=== PATIENT | female | born 1955 | race Caucasian/White ===

== ENCOUNTER 2021-07-12 11:40 | Emergency (ER) | payer MEDICAID ==
[~2021-07-12] VITALS: Ht 167.6 cm; Wt 86.2 kg
[2021-07-12 11:45] VITALS: BP 117/90
--- NOTE | 2021-07-12 11:51 | NUR ---
PT SENT TO LOBBY
[2021-07-12 13:20] LABS: BASOPHILS % (AUTO) 0.4 % (0.0-2.0); EOSINOPHILS # (AUTO) 0.2 K/uL (0-0.4); EOSINOPHILS % (AUTO) 2.6 % (0.0-4.0); HEMATOCRIT 46.4 % (36-48); HEMOGLOBIN 15.5 g/dL (12.0-16.0); LYMPHOCYTES # (AUTO) 1.6 K/uL (2.5-16.5); LYMPHOCYTES % (AUTO) 20.7 % (20.5-51.1); MEAN CORPUSCULAR HEMOGLOBIN 31 pg (27-31); MEAN CORPUSCULAR HGB CONC 34 g/dL (33-37); MEAN CORPUSCULAR VOLUME 91.6 fL (80-94); MONOCYTES # (AUTO) 0.3 K/uL (0.8-1.0); MONOCYTES % (AUTO) 4.6 % (1.7-9.3); NEUTROPHILS # (AUTO) 5.4 K/uL (1.8-7.7); NEUTROPHILS % (AUTO) 71.7 % (42.2-75.2); PLATELET COUNT (AUTO) 213 K/uL (140-450); RED BLOOD CELL COUNT(AUTO) 5.06 MIL/uL (4.20-5.40); RED CELL DISTRIBUTION WIDTH 13.5 % (11.6-13.7); WHITE BLOOD COUNT (AUTO) 7.6 K/uL (4.8-10.8)
[2021-07-12 13:30] LABS: ALBUMIN 3.8 g/dL (3.4-5.0); ANION GAP 10.7 (8-16); CARBON DIOXIDE 28.6 mmol/L (21-32); CREATININE 1.1 mg/dL (0.6-1.3); POTASSIUM 4.3 mmol/L (3.5-5.1); TOTAL BILIRUBIN 0.4 mg/dL (0.0-1.0)
--- NOTE | 2021-07-12 14:02 | NUR ---
UA sample collected, handed to CPT. Sumaya
[2021-07-12 14:06] LABS: APPEARANCE,URINE CLEAR (CLEAR); BILIRUBIN,URINE NEGATIVE (NEGATIVE); BLOOD, URINE TRACE-I (NEGATIVE); COLOR,URINE YELLOW (YELLOW); LEUKOCYTE ESTERASE ,URINE 2+ (NEGATIVE); NITRITE, URINE NEGATIVE (NEGATIVE); UGLUCOSE NEGATIVE (NEGATIVE)
[2021-07-12] MEDS ORDERED: LOPERAMIDE 2 MG CAP PO ONE (14:15)
--- NOTE | 2021-07-12 14:26 | NUR ---
66/F PRESENTS TO ED WITH C/O ABDOMINAL PAIN AND DIARRHEA SINCE THURSDAY. PATIENT STATES PAIN HAS PERSISTED AND UNABLE TO FIND RELIEF, DENIES TAKING ANYTHING AT HOME FOR PAIN OR DIARRHEA. PATIENT ALSO C/O INTERMITTENT EPISODES OF NAUSEA, DENIES VOMITING, CHEST PAIN, SOB OR URINARY SYMPTOMS.
[2021-07-12] MEDS ORDERED: NACL 0.9% 1,000 ML IV ONE (14:35)
[2021-07-12 14:57] LABS: WBC,URINE 20-60 /HPF (0-5)
[2021-07-12] MEDS ORDERED: MORPHINE SULFATE 4 MG/ML SYR IVP ONE (15:50)
[2021-07-12] MEDS ORDERED: KETOROLAC 30 MG/ML VIAL IVP ONE (15:50)
--- NOTE | 2021-07-12 15:50 | NUR ---
IV ESTABLISHED TO LEFT AC, FLUID BOLUS STARTED.
[2021-07-12] MEDS ORDERED: cefTRIAXone 1,000 MG VIAL ONE (16:25)
--- NOTE | 2021-07-12 16:45 | NUR ---
PATIENT AMBULATED TO BATHROOM, STEADY GAIT.
--- NOTE | 2021-07-12 17:59 | NUR ---
PATIENT RESTING IN BED, VSS
--- NOTE | 2021-07-12 18:13 | NUR ---
CANDIE SAMPLE COLLECTED AND WALKED TO LAB.
--- NOTE | 2021-07-12 18:36 | NUR ---
REPORT GIVEN TO [facility] NURSE CHRISTI FOR TRANSFER.
--- NOTE | 2021-07-12 19:13 | NUR ---
Patient Tranfers to outside Facility Physician: DR FARIAS Location: [facility]
[2021-07-12 19:27] VITALS: BP 123/66
== END 2021-07-12 19:13 | disposition short-term general hospital (02) ==
LOC: MED 11:40 → EDBEDREQSVC 16:09 → MED 19:13
DX: N20.0 Calculus of kidney (principal); Z20.822 Contact with and (suspected) exposure to COVID-19; N39.0 Urinary tract infection, site not specified; R19.7 Diarrhea, unspecified
CPT/HCPCS: 36415; 74176; 80053; 81001; 83690; 85025; 87040; 87086; 87426; 96361; 96365; 96375; 99285; J0696; J1885; J2270; J7030